=== PATIENT | male | born 1960 | race African-American/Black ===

== ENCOUNTER 2017-12-17 09:37 | Observation (INO) ==
[2017-12-17 10:26] LABS: Basophils % 0.4 %; Eosinophils # 0.3 K/mcL (0.0-0.6); Eosinophils % 2.8 %; Hematocrit 36.5 % (37.5-50.1); Hemoglobin 11.1 g/dL (12.9-16.9); Immature Granulocytes % 0.5 % (0-4); Lymphocytes # 1.9 K/mcL (0.6-4.6); Lymphocytes % 19.6 %; Mean Corpuscular HGB Conc 30.4 g/dL (31.6-35.5); Mean Corpuscular Hemoglobin 24.2 pg (28.0-33.3); Mean Corpuscular Volume 79.7 fL (83.0-100.0); Mean Platelet Volume 9.4 fL (9.4-12.4); Monocytes # 0.8 K/mcL (0.0-1.3); Monocytes % 8.6 %; Neutrophils # 6.7 K/mcL (1.6-8.9); Platelet Count 278 K/mcL (140-400); Red Blood Count 4.58 M/mcL (4.19-5.50); Red Cell Distribution Width 16.1 % (11.5-14.5); Segmented Neutrophils % 68.1 %
[2017-12-17 10:46] LABS: BUN/Creatinine Ratio 15 (6-26); Blood Urea Nitrogen 14 mg/dL (6-20); Calcium 8.8 mg/dL (8.6-10.3); Carbon Dioxide 30 mEq/L (23-29); Chloride 105 mEq/L (98-107); Glucose 121 mg/dL (70-105); Osmolality,Calculated 292 (280-300); Potassium 3.6 mEq/L (3.5-5.1); Sodium 140 mEq/L (136-145); eGFR For African Americans > 60 (> 60); eGFR For Non-African Americans > 60 (> 60)
--- NOTE | 2017-12-17 10:52 | Emergency Department Note ---
Disposition Clinical Impression: Dyspnea on exertion, Morbid obesity with BMI of 45.0-49.9, adult Hypertension Qualifiers: Hypertension type: essential hypertension Qualified Code(s): I10 - Essential ( primary) hypertension Disposition: Admitted As Inpatient Condition: Good Time of Disposition: 11:45 General Adult HPI - General Chief complaint: ED Shortness of Breath/Dyspnea Stated complaint: BEN Time Seen by Provider: 12/17/17 09:50 Source: patient Mode of arrival: ambulatory Limitations: no limitations Nursing Notes Reviewed: Yes Vital Signs Reviewed: Yes - History of Present Illness HPI Narrative: 57-year-old male presents emergency Department with concerns of increased shortness of breath. Patient states he has had a cough over the past month, was initially diagnosed with acute bronchitis and treated with antibiotics by his primary care provider however the symptoms did not improve. Patient states that he has significant dyspnea with exertion over the past week. He has no history of cardiac disease. He does have hypertension, hyperlipidemia, diabetes but does not smoke and there is no family history of cardiac disease. Patient denies associated diaphoresis, chest pain, syncope, palpitations. Pain Scale: 0 - Related Data Home Medications Medication Instructions Recorded Confirmed GlipiZIDE [Glipizide Xl] 5 mg PO BID 08/10/16 12/17/17 Ibuprofen [Motrin] 800 mg PO TID 08/10/16 12/17/17 Lisinopril [Zestril] 20 mg PO BID 08/10/16 12/17/17 Metoprolol XL (24 HR) Succ [Toprol 100 mg PO DAILY 08/10/16 12/17/17 XL] Pantoprazole Sodium [Protonix] 40 mg PO BID 08/10/16 12/17/17 Pioglitazone HCl [Actos] 30 mg PO DAILY 08/10/16 12/17/17 amLODIPine [Norvasc] 10 mg PO BID 08/10/16 12/17/17 metFORMIN [Glucophage] 1,000 mg PO BIDWM 08/10/16 12/17/17 traMADol [Ultram] 50 - 100 mg PO TID 08/10/16 12/17/17 Allergies Allergy/AdvReac Type Severity Reaction Status Date / Time No Known Allergies Allergy Verified 12/17/17 09:42 All systems ED: reviewed and negative except as stated. Review of Systems: As Per HPI Constitutional: Denies: fever, chills, weakness Cardiovascular: Denies: chest pain, palpitations, paroxysmal nocturnal dyspnea Respiratory: Reports: dyspnea. Denies: cough, wheezes Gastrointestinal: Denies: abdominal pain, nausea, vomiting, diarrhea Genitourinary: Denies: urgency, dysuria, frequency Musculoskeletal: Denies: back pain, neck pain Integumentary: Denies: rash, abrasion Neurological: Denies: headache Past Medical History - Past Medical History Medical history: Reports: asthma, diabetes, hypertension, other Surgical history: Reports: cholecystectomy Psychiatric history: Reports: no psych history - Social History Smoking Status: Never smoker Smokeless Tobacco Status: No Alcohol use: Reports: none Drug use: Reports: none Physical Exam General: Alert and in no acute distress Skin: Warm, dry, intact Head: Normocephalic and atraumatic Neck: Supple, trachea midline and no tenderness Cardiovascular: RRR, no murmur, normal perfusion Respiratory: CTAB, no wheezing, cough, or respiratory distress Musculoskeletal: Normal strength, no tenderness, swelling or deformity GI: Soft, nontender, nondistended. Bowel sounds present Neuro: A&O to person, place, time and situation. No focal deficits noted on exam Psychiatric: cooperative and appropriate mood and affect. - General Limitations: no limitations General appearance: alert, in no apparent distress Course Vital Signs Temperature 98.6 F 12/17/17 09:39 Pulse Rate 87 12/17/17 09:39 Respiratory Rate 18 12/17/17 09:39 Blood Pressure 187/116 12/17/17 09:39 O2 Sat by Pulse Oximetry 96 12/17/17 09:39 Temperature 98.5 F 12/17/17 18:52 Pulse Rate 85 12/17/17 18:52 Respiratory Rate 16 12/17/17 18:52 Blood Pressure 176/84 12/17/17 18:52 O2 Sat by Pulse Oximetry 95 12/17/17 18:52 Oxygen Delivery Oxygen Delivery Room Air Medical Decision Making - MDM Narrative Medical decision making narrative: Patient has elevated heart score. He is dyspneic with exertion. He will be admitted to the hospital for further evaluation of his dyspnea on exertion to rule out ACS. - Medical Records Medical records reviewed: Yes I reviewed the patient's medical records. - Lab Data Lab results reviewed: Yes I reviewed the patient's lab results. Result diagrams: 12/17/17 10:09 12/17/17 10:09 Lab Results 12/17/17 12/17/17 12/17/17 Range/Units 10:09 10:09 10:09 WBC 9.8 (4.3-11.1) K/mcL RBC 4.58 (4.19-5.50) M/mcL Hgb 11.1 L (12.9-16.9) g/dL Hct 36.5 L (37.5-50.1) % MCV 79.7 L (83.0-100.0) fL MCH 24.2 L (28.0-33.3) pg MCHC 30.4 L (31.6-35.5) g/dL RDW 16.1 H (11.5-14.5) % Plt Count 278 (140-400) K/mcL MPV 9.4 (9.4-12.4) fL Immature Gran % 0.5 (0-4) % Seg Neutrophils % 68.1 % Lymphocytes % 19.6 % Monocytes % 8.6 % Eosinophils % 2.8 % Basophils % 0.4 % Neutrophils # 6.7 (1.6-8.9) K/mcL Lymphocytes # 1.9 (0.6-4.6) K/mcL Monocytes # 0.8 (0.0-1.3) K/mcL Eosinophils # 0.3 (0.0-0.6) K/mcL Basophils # 0.0 (0.0-0.2) K/mcL Sodium 140 (136-145) mEq/L Potassium 3.6 (3.5-5.1) mEq/L Chloride 105 (98-107) mEq/L Carbon Dioxide 30 H (23-29) mEq/L BUN 14 (6-20) mg/dL Creatinine 0.92 (0.70-1.30) mg/dL Est GFR ( Amer) > 60 (> 60) Est GFR (Non-Af Amer) > 60 (> 60) BUN/Creatinine Ratio 15 (6-26) Glucose 121 H (70-105) mg/dL Est Mean Plasma Glucose mg/dl Hemoglobin A1c ( - 5.6) % Calculated Osmolality 292 (280-300) Lactic Acid 1.3 (0.5-2.2) mmol/L Calcium 8.8 (8.6-10.3) mg/dL Troponin I (< 0.04) ng/mL B-Natriuretic Peptide (Less than 100) pg/mL Triglycerides 55 (< 150) mg/dL Cholesterol 143 (< 200) mg/dL LDL Cholesterol, Calc 89 (0-99) mg/dL VLDL Cholesterol, Calc 11 (< 31) mg/dL HDL Cholesterol 43 (40-59) mg/dL Cholesterol/HDL Ratio 3.3 (0-4.9) 12/17/17 12/17/17 12/17/17 Range/Units 10:09 10:09 10:09 WBC (4.3-11.1) K/mcL RBC (4.19-5.50) M/mcL Hgb (12.9-16.9) g/dL Hct (37.5-50.1) % MCV (83.0-100.0) fL MCH (28.0-33.3) pg MCHC (31.6-35.5) g/dL RDW (11.5-14.5) % Plt Count (140-400) K/mcL MPV (9.4-12.4) fL Immature Gran % (0-4) % Seg Neutrophils % % Lymphocytes % % Monocytes % % Eosinophils % % Basophils % % Neutrophils # (1.6-8.9) K/mcL Lymphocytes # (0.6-4.6) K/mcL Monocytes # (0.0-1.3) K/mcL Eosinophils # (0.0-0.6) K/mcL Basophils # (0.0-0.2) K/mcL Sodium (136-145) mEq/L Potassium (3.5-5.1) mEq/L Chloride (98-107) mEq/L Carbon Dioxide (23-29) mEq/L BUN (6-20) mg/dL Creatinine (0.70-1.30) mg/dL Est GFR ( Amer) (> 60) Est GFR (Non-Af Amer) (> 60) BUN/Creatinine Ratio (6-26) Glucose (70-105) mg/dL Est Mean Plasma Glucose 151 mg/dl Hemoglobin A1c 6.9 H ( - 5.6) % Calculated Osmolality (280-300) Lactic Acid (0.5-2.2) mmol/L Calcium (8.6-10.3) mg/dL Troponin I < 0.03 (< 0.04) ng/mL B-Natriuretic Peptide 94 (Less than 100) pg/mL Triglycerides (< 150) mg/dL Cholesterol (< 200) mg/dL LDL Cholesterol, Calc (0-99) mg/dL VLDL Cholesterol, Calc (< 31) mg/dL HDL Cholesterol (40-59) mg/dL Cholesterol/HDL Ratio (0-4.9) - Radiology Data Radiology results reviewed: Yes I reviewed the patient's radiology results. - EKG Data EKG #1 EKG attestation: Yes I reviewed and interpreted this EKG. EKG results narrative: ECG - interpreted by ED physician. Rate 89, normal sinus rhythm, no STEMI, no change from previous
[2017-12-17] MEDS ORDERED: Naloxone 0.4 MG/ML INJ IVP PRN (12:25)
[2017-12-17] MEDS ORDERED: Acetaminophen 325 MG TABLET PO PRN (12:25)
[2017-12-17] MEDS ORDERED: D5% in Water 1,000 ML IVC PRN (12:26)
[2017-12-17] MEDS ORDERED: *HR* Dextrose 50 % in Water (Syg) 50 ML SYRINGE IVP PRN (12:26)
[2017-12-17] MEDS ORDERED: Dextrose Gel 15 GM/37.5 ML TUBE PO PRN ×2 (12:26)
--- NOTE | 2017-12-17 12:31 | Internal Med History&Physical ---
Date of Encounter: 12/17/17 Time of Encounter: 12:29 Assessment and Plan (1) Dyspnea on exertion Current visit: Yes Status: Acute Unresolving viral bronchitis versus obesity hypoventilation syndrome versus ACS. Will admit and make NPO after midnight for a stress test. first set trop negative. EKG with no acute ST or T wave changes that are concerning. Risk factors include HTN, DM, obesity. Trend cardiac enzymes. check A1c and lipid panel. Stress test in am. NPO after midnight. Put on tele (2) Hypertension Current visit: Yes Status: Acute BP is elevated. Has not had his meds. Will resume antihpertensives and add IV hydralazine PRN. Qualifiers: Hypertension type: essential hypertension Qualified Code(s): I10 - Essential (primary) hypertension (3) Diabetes mellitus Current visit: Yes Status: Acute Put on SSI. c/w accuchecks. diabetic diet Qualifiers: Diabetes mellitus type: type 2 Diabetes mellitus complication status: without complication Diabetes mellitus penitentiary insulin use: without penitentiary use Qualified Code(s): E11.9 - Type 2 diabetes mellitus without complications (4) Morbid obesity with BMI of 45.0-49.9, adult Current visit: Yes Status: Acute counseled (5) DVT prophylaxis Current visit: Yes Status: Acute heparin SQ Internal Medicine - H&P: HPI Chief complaint: Shortness of breath Admitted From: Home Plans for Post Hospital Care: Home History of present illness: Mr. Farris is a 57 year old male with a history of hypertension, diabetes, morbid obesity, and GERD who presented to us on 12/17/2017 with complaints of worsening shortness of breath for the last couple of weeks or so. He has been getting short of breath for about a month or so and was diagnosed with acute bronchitis and was put on a couple courses of antibiotics and steroids with symptoms not resolving completely. He still has for the most part a dry cough. He should be on CPAP at night which he is barely using lately due to a nagging cough. He is only able to walk a block or so before he has to sit down and catch his breath. Denies any fever, chills, headache, nausea, vomiting, chest pain, abdominal pain, urinary symptoms, or neurological symptoms. He presented to the ED where he underwent a workup that was mostly unremarkable. He had an EKG which showed no ST or T-wave changes that are acute. He does have some T-wave inversions in lead III which is old. He tells me he had a stress test about 20 years ago or so which was negative. Chest x-ray was unremarkable. BNP was normal. The patient is being admitted to rule out ACS. Past Med Surg Social Fam HX - Past Medical History Medical history: asthma, diabetes, hypertension, other Psychiatric history: no psych history - Past Surgical History Surgical History: cholecystectomy - Social History Smoking Status: Never smoker Smokeless Tobacco Status: No Alcohol use: none Drug use: none Internal Medicine - H&P: Meds GlipiZIDE [Glipizide Xl] 5 mg PO BID 08/10/16 [History] Ibuprofen [Motrin] 800 mg PO TID 08/10/16 [History] Lisinopril [Zestril] 20 mg PO BID 08/10/16 [History] Metoprolol XL (24 HR) Succ [Toprol XL] 100 mg PO DAILY 08/10/16 [History] Pantoprazole Sodium [Protonix] 40 mg PO BID 08/10/16 [History] Pioglitazone HCl [Actos] 30 mg PO DAILY 08/10/16 [History] amLODIPine [Norvasc] 10 mg PO BID 08/10/16 [History] metFORMIN [Glucophage] 1,000 mg PO BIDWM 08/10/16 [History] traMADol [Ultram] 50 - 100 mg PO TID 08/10/16 [History] 3 Allergy/AdvReac Type Severity Reaction Status Date / Time No Known Allergies Allergy Verified 12/17/17 09:42 All Systems PM: A 10-system review of systems was performed and is negative for pertinent findings except as documented above in the HPI. Review of systems: All systems reviewed are negative except for as mentioned above - Constitutional Vitals: Temp Pulse Resp BP Pulse Ox 98.6 F 86 20 180/92 94 12/17/17 09:39 12/17/17 09:49 12/17/17 09:49 12/17/17 09:49 12/17/17 09:49 Exam: GEN: NAD HEENT: AT, NC, No cyanosis, oral mucosa is moist, No JVD Lymphatics: No lymphadenoapthy Eyes: Extrocular muscles intact, anicteric CVS:RRR. S1, S2, No m/r/g RESP: Diminished ABD: Soft, NT, ND, +BS EXT: No edema, No rashes, 2+ DP NEURO: Nonfocal, CN II-XII intact, No focal motor or sensory deficits Psych: Cooperative, Not anxious or depressed Internal Med - H&P Results - Labs CBC & Chem 7: 12/17/17 10:09 12/17/17 10:09 Labs: Short CBC 12/17/17 Range/Units 10:09 WBC 9.8 (4.3-11.1) K/mcL Hgb 11.1 L (12.9-16.9) g/dL Hct 36.5 L (37.5-50.1) % Plt Count 278 (140-400) K/mcL Neutrophils # 6.7 (1.6-8.9) K/mcL BMP 12/17/17 10:09 Sodium 140 Potassium 3.6 Chloride 105 Carbon Dioxide 30 H BUN 14 Creatinine 0.92 Glucose 121 H Calcium 8.8 Cardiac Enzymes 12/17/17 Range/Units 10:09 Troponin I < 0.03 (< 0.04) ng/mL - Impressions ITS Impressions Chest X-Ray 12/17/17 09:51 IMPRESSION: No acute process. D/ / Sunny Mcnulty MD / Sunny Mcnulty MD Interpreting Provider: Sunny Mcnulty MD
[2017-12-17 13:16] LABS: Hemoglobin A1C 6.9 %
[2017-12-17 14:33] LABS: Chol/HDL Ratio 3.3 (0-4.9); Cholesterol 143 mg/dL (< 200); HDL Cholesterol 43 mg/dL (40-59); LDL Cholesterol,Calculated 89 mg/dL (0-99); Triglycerides 55 mg/dL (< 150)
[2017-12-17] MEDS: *HR* Heparin 5,000 UNIT/ML VIAL SQ SCH ×2 (16:05→22:58)
[2017-12-17] MEDS: Insulin LISPRO 300 UNITS/3 ML VIAL SQ SCH (19:18)
[2017-12-17] MEDS: amLODIPine 5 MG TABLET PO SCH (19:49)
[2017-12-17] MEDS: Lisinopril 20 MG TABLET PO SCH (19:50)
[2017-12-18] MEDS: Insulin LISPRO 300 UNITS/3 ML VIAL SQ SCH ×3 (00:57→12:23)
[2017-12-18 05:25] LABS: Basophils # 0.1 K/mcL (0.0-0.2); Basophils % 0.5 %; Eosinophils # 0.3 K/mcL (0.0-0.6); Eosinophils % 2.6 %; Hematocrit 36.6 % (37.5-50.1); Immature Granulocytes % 0.4 % (0-4); Lymphocytes # 1.9 K/mcL (0.6-4.6); Lymphocytes % 18.4 %; Mean Corpuscular HGB Conc 30.1 g/dL (31.6-35.5); Mean Corpuscular Hemoglobin 23.9 pg (28.0-33.3); Mean Corpuscular Volume 79.6 fL (83.0-100.0); Mean Platelet Volume 9.5 fL (9.4-12.4); Monocytes # 0.8 K/mcL (0.0-1.3); Neutrophils # 7.1 K/mcL (1.6-8.9); Platelet Count 276 K/mcL (140-400); Red Cell Distribution Width 15.9 % (11.5-14.5); Segmented Neutrophils % 70.1 %
[2017-12-18 05:48] LABS: BUN/Creatinine Ratio 13 (6-26); Blood Urea Nitrogen 11 mg/dL (6-20); Carbon Dioxide 29 mEq/L (23-29); Chloride 105 mEq/L (98-107); Glucose 115 mg/dL (70-105); Magnesium 1.8 mg/dL (1.6-2.6); Osmolality,Calculated 292 (280-300); Potassium 3.4 mEq/L (3.5-5.1); Sodium 141 mEq/L (136-145); eGFR For African Americans > 60 (> 60); eGFR For Non-African Americans > 60 (> 60)
[2017-12-18] MEDS ORDERED: Regadenoson 0.4 MG/5 ML SYRINGE IVP ONE (06:03)
[2017-12-18] MEDS: *HR* Heparin 5,000 UNIT/ML VIAL SQ SCH ×2 (06:05→15:14)
[2017-12-18] MEDS ORDERED: Metoprolol XL (24 HR) Succ 50 MG TAB.ER.24H PO SCH (09:00)
[2017-12-18] MEDS: amLODIPine 5 MG TABLET PO SCH (15:13)
[2017-12-18] MEDS: Lisinopril 20 MG TABLET PO SCH (15:13)
[2017-12-18 15:21] VITALS: BP 182/77
--- NOTE | 2017-12-18 16:32 | Discharge Summary ---
Orders not resulted at time of discharge: Pending orders 12/19/17 04:00 BMP [Basic Metabolic Panel] AM 0400 Complete Blood Count [HEME] AM 0400 Date of Encounter: 12/18/17 Time of Encounter: 16:29 - Discharge Diagnosis (1) Diabetes mellitus Priority: Secondary Status: Chronic Comments: Resume home medications Qualifiers: Diabetes mellitus type: type 2 Diabetes mellitus complication status: without complication Diabetes mellitus residential insulin use: without residential use Qualified Code(s): E11.9 - Type 2 diabetes mellitus without complications (2) Dyspnea on exertion Priority: Primary Status: Acute Comments: Follow-up of pulmonary as an outpatient for evaluation Provided ventilator inhaler for wheezing Restorationist protocol for cough (3) Hypertension Priority: Secondary Status: Chronic Comments: Continue home regime Qualifiers: Hypertension type: essential hypertension Qualified Code(s): I10 - Essential (primary) hypertension (4) Morbid obesity with BMI of 45.0-49.9, adult Priority: Secondary Status: Chronic Comments: Lifestyle changes Hospital course: Mr. Farris is a 57 year old male with a history of hypertension, diabetes, morbid obesity, and GERD who presented on 12/17/2017 with complaints of worsening shortness of breath for the last couple of weeks or so. He has been getting short of breath for about a month or so and was diagnosed with acute bronchitis and was put on a couple courses of antibiotics and steroids with symptoms not resolving completely. He still has for the most part a dry cough. He should be on CPAP at night which he is barely using lately due to a nagging cough. He is only able to walk a block or so before he has to sit down and catch his breath. Denies any fever, chills, headache, nausea, vomiting, chest pain, abdominal pain, urinary symptoms, or neurological symptoms. He presented to the ED where he underwent a workup that was mostly unremarkable. He had an EKG which showed no ST or T-wave changes that are acute. He does have some T-wave inversions in lead III which is old. He tells me he had a stress test about 20 years ago or so which was negative. Chest x-ray was unremarkable. BNP was normal. The patient was admitted to rule out ACS. He was unable to do a stress test secondary to his body size and severe of being in the camera. Cardiology suggested a stress echo which was completed and according to the fashion stylist was adequate testing with no ischemia. Cardiology will follow in the office as an outpatient. Also will follow-up with pulmonary as outpatient. He will need to see his PCP within the next week. His cough and wheezing are bad at night per his report so I offered Tessalon Perles and a Ventolin inhaler to use with wheezing and cough. The patient verbalized understanding and will follow up as directed. He has been pain-free since arrival to the floor. All of his questions were answered. He is referred to the assessment and plan for further details of this admission. Discharge discussed with: patient, nurse - Time Spent with Patient Total time spent providing and/or coordinating discharge services: Less than 30 minutes - Discharge Medications Prescriptions: Albuterol Sulfate [Ventolin Hfa] 18 gm IH Q4H PRN #1 hfa.[email or web address] PRN Reason: Wheezing Benzonatate [Tessalon] 200 mg PO TID 7 Days #21 capsule Home Medications: GlipiZIDE [Glipizide Xl] 5 mg PO BID 08/10/16 [History] Ibuprofen [Motrin] 800 mg PO TID 08/10/16 [History] Lisinopril [Zestril] 20 mg PO BID 08/10/16 [History] Metoprolol XL (24 HR) Succ [Toprol Xl] 100 mg PO DAILY 08/10/16 [History] Pantoprazole Sodium [Protonix] 40 mg PO BID 08/10/16 [History] Pioglitazone HCl [Actos] 30 mg PO DAILY 08/10/16 [History] amLODIPine [Norvasc] 10 mg PO BID 08/10/16 [History] metFORMIN [Glucophage] 1,000 mg PO BIDWM 08/10/16 [History] traMADol [Ultram] 50 - 100 mg PO TID 08/10/16 [History] Albuterol Sulfate [Ventolin Hfa] 18 gm IH Q4H PRN #1 hfa.aer.ad 12/18/17 [Rx] Benzonatate [Tessalon] 200 mg PO TID 7 Days #21 capsule 12/18/17 [Rx] Allergies/Adverse Reactions: 3 Allergy/AdvReac Type Severity Reaction Status Date / Time No Known Allergies Allergy Verified 12/17/17 09:42 Date of admission: 12/17/17 13:19 Primary care physician: Tee Laboy MD Discharging clinician: Dania Elmore Anticipated date of discharge: 12/18/17 - Constitutional Vitals: Temp Pulse Resp BP Pulse Ox 97.6 F 84 18 182/77 96 12/18/17 15:20 12/18/17 15:20 12/18/17 15:20 12/18/17 15:20 12/18/17 15:20 General appearance: Present: cooperative, A&O X 3, morbidly obese, pleasant, no acute distress, answers questions appropriately - Head Head exam: Present: atraumatic, normocephalic - Eye Eye exam: Present: PERRL, conjuntiva pink, sclera anicteric Pupils: Present: PERRL - Neck Neck exam general surgery: Present: supple, trachea midline. Absent: lymphadenopathy - Respiratory Respiratory exam: Present: decreased breath sounds, CTAB. Absent: accessory muscle use, rales, rhonchi, wheezes Additional comments: No wheeze on exam or cough at this time the patient states when he lays down at night he starts to wheeze and cough. - Cardiovascular Cardiovascular exam: Present: RRR, +S1, +S2. Absent: diastolic murmur, gallop, rubs, systolic murmur - GI/Abdominal GI/Abdominal exam: Present: normal bowel sounds, soft, no peritoneal signs. Absent: distended, tenderness - Extremities Exam Extremities exam: Present: warm, radial pulses palpable and symmetrical. Absent : calf tenderness, cyanotic, pedal edema - Neurological Exam Neurological exam: Present: CN II-XII intact, oriented X3, no focal deficits. Absent: pronater drift, facial droop, speech deficit - Skin Skin exam: Present: dry, intact - Patient Status Disposition: Home, Self-Care Condition: Good Functional capacity at discharge: independent ambulation Overall status at discharge: patient is progressing back to baseline - Discharge Instructions Follow Up With: Tee Laboy MD [Primary Care Provider] - Additional Instructions: follow up with pulmonary and cardiology as directed, they will call you with appointment - Diet and Activity Activity: resume usual activities as tolerated Diet: advance to your usual diet
--- NOTE | 2017-12-19 20:21 | Electrocardiograph Report ---
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
== END 2017-12-18 18:15 | disposition home or self-care (01) ==
LOC: 3BNU 09:37 → EMEROO 09:37 → 3BNU 14:04
PROVIDERS: ADMIT Internal Medicine; ATTEND Registered Nurse